=== PATIENT | female | born 1985 | race Caucasian/White ===

== ENCOUNTER 2016-11-20 15:34 | Emergency (ER) | payer SELFPAY ==
[2016-11-20 16:19] LABS: Basophils % (Auto) 0.2 % (0.0-1.8); Hematocrit 39.4 % (30.3-42.9); Hemoglobin 13.6 gm/dl (10.1-14.3); Mean Corpuscular HGB Conc 34 % (30-34); Mean Corpuscular Hemoglobin 33 pg (28-32); Mean Corpuscular Volume 96 fl (79-97); Platelet Count 186 K/mm3 (140-440); Red Blood Count 4.12 M/mm3 (3.65-5.03); Red Cell Distribution Width 14.5 % (13.2-15.2); White Blood Count 12.7 K/mm3 (4.5-11.0)
[2016-11-20 16:38] LABS: Alanine Aminotransferase 125 units/L (7-56); Albumin 3.9 g/dL (3.9-5); Albumin/Globulin Ratio 1.1 %; Alkaline Phosphatase 100 units/L (35-129); Anion Gap 17 mmol/L; Blood Urea Nitrogen 10 mg/dL (7-17); Calcium 8.2 mg/dL (8.4-10.2); Carbon Dioxide 19 mmol/L (22-30); Chloride 99.2 mmol/L (98-107); Glucose 113 mg/dL (65-100); Lipase 26 units/L (13-60); Potassium 3.2 mmol/L (3.6-5.0); Sodium 132 mmol/L (137-145); Total Protein 7.5 g/dL (6.3-8.2)
[2016-11-20 17:46] LABS: Bacteria,Urine 1+ /HPF (Negative); Bilirubin,Urine NEG (Negative); Blood,Urine SM (Negative); Ketones,Urine 20 mg/dL (Negative); Leukocyte Esterase,Urine LG (Negative); Mucus,Urine 1+ /HPF; Nitrite,Urine NEG (Negative); Renal Epithelial Cells,Urine 1 /LPF
[2016-11-20] MEDS ORDERED: NACL 0.9% 1000 ML 1,000 ML IV ONE (20:24)
[2016-11-20] MEDS ORDERED: ROCEPHIN/NS 2 GM/100 ML 2 GM/100 ML BAG IV ONE (20:24)
[2016-11-20] MEDS ORDERED: ZOFRAN IV ONE (20:24)
--- NOTE | 2016-11-20 20:25 | Emergency Department Report ---
<FRANNIE JHONSON - Last Filed: 11/21/16 00:26> ED Abdominal Pain HPI - General Chief Complaint: Abdominal Pain Stated Complaint: FEVER Time Seen by Provider: 11/20/16 20:23 Source: patient Mode of arrival: Wheelchair Limitations: No Limitations - History of Present Illness Initial Comments: 31-year-old female past medical history recurrent UTIs, kidney stones presents with complaint of 2 days of suprapubic pain and flank pain generalized weakness. States that she has been having fevers and chills was with associated nausea. Patient accompanied by her family members. States that she has had similar symptoms and episodes in the past. Patient states that she feels very nauseous and weak. Awake alert and oriented 3. This patient speaks Estonian and Telugu which I am able to speak fluently. MD Complaint: abdominal pain Onset/Timin -: days(s) Location: suprapubic, L flank, R flank Radiation: suprapubic, L flank, R flank Severity: moderate Severity scale (0 -10): 6 Quality: aching, sharp - Related Data Previous Rx's Medication Instructions Recorded Last Taken Type Levofloxacin [Levaquin] 750 mg PO QDAY #5 tablet 11/21/16 Unknown Rx Naproxen [Naprosyn TAB] 375 mg PO BID PRN #20 tablet 11/21/16 Unknown Rx Ondansetron [Zofran Odt] 4 mg PO Q8H PRN #15 tab.rapdis 11/21/16 Unknown Rx Phenazopyridine [Pyridium] 100 mg PO TID #6 tab 11/21/16 Unknown Rx Allergies Allergy/AdvReac Type Severity Reaction Status Date / Time No Known Allergies Allergy Unverified 11/20/16 15:56 ED Review of Systems ROS: Stated complaint: FEVER Other details as noted in HPI Constitutional: denies: chills, fever Eyes: denies: eye pain, eye discharge, vision change ENT: denies: ear pain, throat pain Respiratory: denies: cough, shortness of breath, wheezing Cardiovascular: denies: chest pain, palpitations Endocrine: no symptoms reported Gastrointestinal: denies: abdominal pain, nausea, diarrhea Genitourinary: denies: urgency, dysuria, discharge Musculoskeletal: denies: back pain, joint swelling, arthralgia Skin: denies: rash, lesions Neurological: denies: headache, weakness, paresthesias Psychiatric: denies: anxiety, depression Hematological/Lymphatic: denies: easy bleeding, easy bruising ED Past Medical Hx - Past Medical History Previous Medical History?: No - Surgical History Hx Cholecystectomy: Yes - Social History Smoking Status: Never Smoker Substance Use Type: None - Medications Home Medications: Home Medications Medication Instructions Recorded Confirmed Last Taken Type Levofloxacin [Levaquin] 750 mg PO QDAY #5 tablet 11/21/16 Unknown Rx Naproxen [Naprosyn TAB] 375 mg PO BID PRN #20 tablet 11/21/16 Unknown Rx Ondansetron [Zofran Odt] 4 mg PO Q8H PRN #15 tab.rapdis 11/21/16 Unknown Rx Phenazopyridine [Pyridium] 100 mg PO TID #6 tab 11/21/16 Unknown Rx ED Physical Exam - General Limitations: No Limitations General appearance: alert, anxious - Head Head exam: Present: atraumatic, normocephalic - Eye Eye exam: Present: normal appearance, PERRL, EOMI - ENT ENT exam: Present: mucous membranes moist - Neck Neck exam: Present: normal inspection - Respiratory Respiratory exam: Present: normal lung sounds bilaterally. Absent: respiratory distress - Cardiovascular Cardiovascular Exam: Present: regular rate, normal rhythm. Absent: systolic murmur, diastolic murmur, rubs, gallop - GI/Abdominal GI/Abdominal exam: Present: soft, tenderness (suprapubic tenderness on exam), normal bowel sounds, other (patient has mild right and left-sided flank pain on percussion) - Extremities Exam Extremities exam: Present: normal inspection - Back Exam Back exam: Present: normal inspection - Neurological Exam Neurological exam: Present: alert, oriented X3, CN II-XII intact, normal gait - Psychiatric Psychiatric exam: Present: normal affect, normal mood - Skin Skin exam: Present: warm, dry, intact, normal color. Absent: rash ED Course Vital Signs 11/20/16 11/20/16 11/20/16 15:49 21:39 23:00 Temperature 101.1 F H Pulse Rate 98 H 107 H 103 H Respiratory 19 22 14 Rate Blood Pressure 110/76 Blood Pressure 105/71 [Left] O2 Sat by Pulse 99 98 98 Oximetry 11/20/16 23:01 Temperature 99.7 F H Pulse Rate 100 H Respiratory 22 Rate Blood Pressure Blood Pressure 101/61 [Left] O2 Sat by Pulse 98 Oximetry ED Medical Decision Making - Lab Data Result diagrams: 11/20/16 15:59 11/20/16 15:59 - Medical Decision Making A/P: Clinical pyelonephritis 1-case discussed with 2-patient given empiric course of Levaquin as she states she has a history of recurrent UTIs 3-patient states she lives in [place] and has a urologist appointment follow-up the which is approximately 1 week from now 4-patient now tolerating by mouth. Signed out to my colleague for follow-up vitals Critical care attestation.: If time is entered above; I have spent that time in minutes in the direct care of this critically ill patient, excluding procedure time. ED Disposition Clinical Impression: Pyelonephritis Disposition: TO HOME OR SELFCARE Condition: Good Instructions: Urinary Tract Infection in Women (ED), Acute Pyelonephritis (ED) , Abdominal Pain (ED), Flank Pain (ED) Prescriptions: Levofloxacin [Levaquin] 750 mg PO QDAY #5 tablet Naproxen [Naprosyn TAB] 375 mg PO BID PRN #20 tablet PRN Reason: Pain Ondansetron [Zofran Odt] 4 mg PO Q8H PRN #15 tab.rapdis PRN Reason: Nausea Phenazopyridine [Pyridium] 100 mg PO TID #6 tab Referrals: [facility] [Provider Group] - 3-5 Days [facility] [Provider Group] - 3-5 Days Forms: Accompanied Note, Work/School Release Form(ED) Print Language: [place] CITIZEN <BASSEM BRUMFIELD - Last Filed: 11/21/16 01:39> ED Medical Decision Making - Lab Data Result diagrams: 11/20/16 15:59 11/20/16 15:59 ED Disposition Is pt being admited?: No Does the pt Need Aspirin: No
[2016-11-20] MEDS ORDERED: MORPHINE IV ONE (21:29)
[2016-11-20] MEDS ORDERED: LACTATED RINGERS 1,000 ML IV ONE (21:30)
[2016-11-20] MEDS ORDERED: TYLENOL PO ONE (21:35)
[2016-11-20] MEDS ORDERED: MORPHINE ONE (21:40)
--- NOTE | 2016-11-20 23:25 | Cat Scan Report ---
FINAL REPORT EXAM: CT ABDOMEN PELVIS W CON HISTORY: pyelonephritis? flank pain w. uti TECHNIQUE: Spiral CT scanning of the abdomen and pelvis after the uneventful administration of IV contrast. Multiplanar reformations. 100 mL Omnipaque IV. PRIORS: None. FINDINGS: Abdomen: Visualized lung bases show probable mild atelectatic change bilaterally. Gallbladder surgically absent. Liver without significant abnormality. Spleen without significant abnormality. Pancreas without significant abnormality. Cortical defects, probable scarring and atrophic change in the right renal upper pole. Heterogenous enhancement pattern and striated nephrogram in the right kidney, most pronounced in the lower pole, with some perinephric fat stranding. Large calcifications x2 in right renal upper pole, largest measuring approximately 1.4 cm. 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 Left kidney without significant abnormality. Adrenal glands without significant abnormality. Pelvis: Bowel grossly unremarkable. Appendix within normal limits. No significant free peritoneal fluid or discrete abscess. Abdominal aorta non-aneurysmal. Ovoid, cystic focus in the left ovary measures approximately 3 cm. IMPRESSION: 1. Findings which probably represent nonspecific postinflammatory change in the right kidney, including pyelonephritis or UTI. Correlate clinically. 2. Nonobstructing right renal calcifications and duplicated right renal collecting system. 3. Findings which may represent functional cystic change in the left ovary. Correlation with pelvic ultrasound may help in further evaluation, as clinically indicated.
[2016-11-21] MEDS ORDERED: NACL 0.9% 1000 ML 1,000 ML IV ONE (00:08)
[2016-11-21] MEDS ORDERED: TORADOL IV ONE (00:08)
[2016-11-21] MEDS ORDERED: LEVAQUIN PO ONE (00:08)
[2016-11-21] MEDS ORDERED: ZOFRAN ODT PO ONE (00:13)
[2016-11-21 03:18] VITALS: BP 102/60
== END 2016-11-21 03:18 | disposition home or self-care (01) ==
LOC: ED 15:34
DX: N12 Tubulo-interstitial nephritis, not specified as acute or chronic (principal)
CPT/HCPCS: 36415; 74177; 80053; 81001; 82140; 82550; 83690; 84703; 85025; 87040; 87076; 87086; 87186; 96361; 96365; 96375; 99284; J0696; J1885; J2270; J2405; J7030; J7120; Q9967; Q0162

== ENCOUNTER 2018-07-06 17:24 | Inpatient (IN) | payer OTHER ==
[2018-07-06] MEDS ORDERED: NARCAN 0.4 MG/1 ML IV PRN (19:46)
[2018-07-06] MEDS ORDERED: XYLOCAINE 2% INFILTRATI ONE (19:46)
[2018-07-06] MEDS ORDERED: AMPICILLIN/NS 2 GM/100 ML 2 GM/100 ML BAG IV ONE (19:46)
[2018-07-06] MEDS ORDERED: BRETHINE SUB-Q PRN (19:46)
[2018-07-06] MEDS ORDERED: ZOFRAN IV PRN (19:46)
[2018-07-06] MEDS ORDERED: MINERAL OIL PO PRN (19:46)
[2018-07-06] MEDS ORDERED: STADOL IV PRN (19:46)
[2018-07-06] MEDS ORDERED: BRETHINE IVP PRN (19:46)
[2018-07-06] MEDS ORDERED: LACTATED RINGERS 1,000 ML IV SCH (20:00)
[2018-07-06] MEDS ORDERED: PITOCin/NS 30 UNIT/500ML 30 UNITS/500 ML BAG IV SCH (20:00)
--- NOTE | 2018-07-06 20:06 | History and Physical Report ---
History of Present Illness Date of examination: 07/06/18 Date of admission: 07/06/18 17:24 Chief complaint: My water broke History of present illness: Early entry to care at [facility] , Uncomplicated course. Past History Past Medical History: no pertinent history Past Surgical History: cholecystectomy, other (Breast Implants) Family/Genetic History: none Social history: no significant social history, single - Obstetrical History Expected Date of Delivery: 07/12/18 Actual Gestation: 39 Week(s) 1 Day(s) : 5 Para: 4 Hx # Term Pregnancies: 4 Number of Living Children: 4 #1 Infant Gender: Female year: 2,001 Birthweight: 3.175 kg Method of Delivery: Vaginal Gestational age at delivery: 40 Complications: none #2 Infant Gender: Female year: 2,005 Birthweight: 3.175 kg Method of Delivery: Vaginal Gestational age at delivery: 40 #3 Infant Gender: Female year: 2,007 Birthweight: 2.722 kg Method of Delivery: Vaginal #4 Gender: Female year: 2,010 Birthweight: 2.722 kg Method of Delivery: Vaginal Gestational age at delivery: 40 Medications and Allergies Allergies Allergy/AdvReac Type Severity Reaction Status Date / Time No Known Allergies Allergy Unverified 11/20/16 15:56 Home Medications Medication Instructions Recorded Confirmed Last Taken Type Naproxen [Naprosyn TAB] 375 mg PO BID PRN #20 tablet 11/21/16 Unknown Rx Ondansetron [Zofran Odt] 4 mg PO Q8H PRN #15 tab.rapdis 11/21/16 Unknown Rx Phenazopyridine [Pyridium] 100 mg PO TID #6 tab 11/21/16 Unknown Rx levoFLOXacin [Levaquin] 750 mg PO QDAY #5 tablet 11/21/16 Unknown Rx Active Meds: Active Medications Butorphanol Tartrate (Stadol) 2 mg IV Q2H PRN PRN Reason: Pain , Severe (7-10) Ephedrine Sulfate (Ephedrine Sulfate) 10 mg IV Q2M PRN PRN Reason: Hypotension Ampicillin Sodium (Polycillin/Ns 2 Gm/100 Ml) 2 gm in 100 mls @ 100 mls/hr IV ONCE ONE; Protocol Stop: 07/06/18 20:45 Ampicillin Sodium (Ampicillin/Ns 1 Gm/50 Ml) 1 gm in 50 mls @ 100 mls/hr IV Q4HR JULIUS; Protocol Lactated Ringer's (Lactated Ringers) 1,000 mls @ 125 mls/hr IV DIRECT JULIUS Oxytocin/Sodium Chloride (Pitocin/Ns 20 Unit/1000ml Drip) 20 units in 1,000 mls @ 125 mls/hr IV DIRECT JULIUS Oxytocin/Sodium Chloride (Pitocin/Ns 30 Unit/500ml) 30 units in 500 mls @ 2 mls/hr IV TITR JULIUS; Protocol Mineral Oil (Mineral Oil) 30 ml PO QHS PRN PRN Reason: Constipation Naloxone HCl (Narcan 0.4 Mg/1 Ml) 0.1 mg IV Q2MIN PRN PRN Reason: Res Rate </= 8 or 02 SAT < 92% Ondansetron HCl (Zofran) 4 mg IV Q8H PRN PRN Reason: Nausea And Vomiting Terbutaline Sulfate (Brethine) 0.25 mg SUB-Q ONCE PRN PRN Reason: Hyperstimulation/Hypertonicity Terbutaline Sulfate (Brethine) 0.25 mg IVP ONCE PRN PRN Reason: Hyperstimulation/Hypertonicity Review of Systems All systems: negative - Vital Signs Vital signs: Vital Signs Pulse BP 71 128/73 07/06/18 17:36 07/06/18 17:36 Temp Pulse Resp BP Pulse Ox 98.7 F 71 18 128/73 07/06/18 18:20 07/06/18 17:36 07/06/18 18:20 07/06/18 17:36 - Physical Exam Breasts: Positive: normal Cardiovascular: Regular rate Lungs: Positive: Clear to auscultation Abdomen: Positive: normal appearance, soft, normal bowel sounds Genitourinary (Female): Positive: normal external genitalia, normal perenium Vagina: Positive: normal moisture Uterus: Positive: enlarged Anus/Rectum: Positive: normal perianal skin Extremities: Positive: normal - Obstetrical FHR: category 1 Uterine Contraction Monitor Mode: External Cervical Dilatation: 1 (Copious amount of clear fluid leaking) Cervical Effacement Percentage: 40 station: -4 Uterine Contraction Pattern: Irregular Uterine Tone Measurement Phase: Resting Uterine Contraction Intensity: Mild Results All other labs normal. Assessment and Plan A: IUP @ 39 1/7 Weeks Category I Tracing PROM GBS Positive P: Admit to L&D per Routine Orders Pitocin Induction GBS Prophylaxis
[2018-07-06 21:39] LABS: Hematocrit 38.1 % (30.3-42.9); Hemoglobin 13.4 gm/dl (10.1-14.3); Mean Corpuscular HGB Conc 35 % (30-34); Mean Corpuscular Volume 99 fl (79-97); Platelet Count 253 K/mm3 (140-440); Red Blood Count 3.85 M/mm3 (3.65-5.03); Red Cell Distribution Width 14.1 % (13.2-15.2)
[2018-07-06] MEDS ORDERED: AMPICILLIN/NS 1 GM/50 ML 1 GM/50 ML BAG IV SCH (23:48)
[2018-07-07] MEDS: PITOCin/NS 20 UNIT/1000ML DRIP 20 UNITS/1,000 ML BAG IV SCH ×2 (01:52→03:44)
--- NOTE | 2018-07-07 02:09 | Procedure Note ---
OB Delivery Note - Delivery Date of Delivery: 07/07/18 (0145) Surgeon: CHIQIUS ERICKSON Estimated blood loss: 200cc - Vaginal Delivery presentation: vertex Delivery position: OA Intrapartum events: none Delivery induction: oxytocin Delivery augmentation: pitocin Delivery monitor: external FHT, external uterine Route of delivery: Delivery placenta: spontaneous Delivery cord: 3 umbilical vessels Episiotomy: none Delivery laceration: none Anesthesia: none Delivery comments: of a live 7'8 male infant over a intact perineum under IV pain control with Apgars of 8 and 9 at 0145 on 07/07/2018. directly to maternal abd/chest, skin to skin. Spontaneous delivery of placenta complete and intact with [place] side presenting at 0156. Fundus is firm and midline located 4 below the U. Lochia is scant. Delayed cord clamping and cutting; cord cut by the Father of the Baby. Cord blood collected; Placenta discarded. GBS prophylaxis X 2. - A at 1 minute: 8 at 5 minutes: 9 Infant Gender: Male (7'8)
[2018-07-07] MEDS ORDERED: IBUPROFEN PO ONE (03:38)
[2018-07-07] MEDS ORDERED: NORCO 5/325 PO PRN (04:14)
[2018-07-07] MEDS ORDERED: BENADRYL PO PRN (04:15)
[2018-07-07] MEDS: IBUPROFEN PO PRN (04:45)
[2018-07-07 14:41] LABS: Hematocrit 31.9 % (30.3-42.9); Hemoglobin 11.1 gm/dl (10.1-14.3)
--- NOTE | 2018-07-08 09:43 | Progress Note ---
Assessment and Plan A: PPD#1 s/p Breast/Bottlefeeding VSS P: Routine PP care Anticipate discharge home 24-48 hrs Subjective - Subjective Date of service: 07/08/18 Principal diagnosis: PPD#1 s/p 07/07/18 @01:45 Patient reports: appetite normal, voiding normally, pain well controlled, flatus, ambulating normally [place]: doing well, other (breast/bottle; under toña lights) Objective - Vital Signs Latest vital signs: Vital Signs Temp Pulse Resp BP BP Pulse Ox 07/08/18 00:45 98.5 F 72 16 110/65 07/07/18 16:15 98.6 F 83 24 112/72 96 07/07/18 13:35 97.8 F 74 20 109/71 98 Intake and Output 07/07/18 07/08/18 07/08/18 23:59 07:59 15:59 Intake Total 480 Balance 480 Intake: Intake, Free Water 480 Other: # Voids Void 2 - Exam Breasts: Present: normal, Cardiovascular: Present: Regular rate, Normal S1, Normal S2, No murmurs Lungs: Present: Clear to auscultation, Normal air movement Abdomen: Present: normal appearance, soft, tenderness, normal bowel sounds. Absent: distention Vulva: both: normal Uterus: Present: firm, fundal height below umbilicus (-1) Extremities: Present: normal Deep Tendon Reflex Grade: Normal +2
--- NOTE | 2018-07-08 09:45 | Discharge Summary ---
Providers - Providers Date of Admission: 07/06/18 17:24 Date of discharge: 07/09/18 Attending physician: JULIAN GARCIA MD Primary care physician: JULIAN GARCIA MD Hospitalization Reason for admission: active labor, IUP at term Delivery: Procedure details: see delivery note Episiotomy: none Laceration: none Other procedures: none complications: none Discharge diagnosis: IUP at term delivered [place] baby: male Condition at discharge: Good Disposition: DC-01 TO HOME OR SELFCARE Plan - Provider Discharge Summary Activity: routine, no sex for 6 weeks, no heavy lifting 4 weeks, no strenuous exercise Diet: routine Instructions: routine Additional instructions: [] Smoking cessation referral if applicable(refer to patient education folder for contact #) [] Refer to [facility] Booklet Call your doctor immediately for: * Fever > 100.5 * Heavy vaginal bleeding ( >1 pad per hour) * Severe persistent headache * Shortness of breath * Reddened, hot, painful area to leg or breast * Drainage or odor from incision. * Keep incision clean and dry at all times and follow doctor's instructions regarding bathing/showering - Follow up plan Follow up: JULIAN GARCIA MD [Primary Care Provider] - 6 Weeks
[2018-07-09] MEDS: IBUPROFEN PO PRN ×2 (12:12→18:19)
[2018-07-09 16:03] VITALS: BP 119/78
== END 2018-07-09 18:17 | disposition home or self-care (01) | DRG 807 ==
LOC: LD 17:24 → OB 07-07 04:08
PROVIDERS: ADMIT Obstetrics & Gynecology; ATTEND Obstetrics & Gynecology
PROC: 10E0XZZ Delivery of Products of Conception, External Approach (ICD-10-PCS; principal; 2018-07-07)
PROC: 3E033VJ Introduction of Other Hormone into Peripheral Vein, Percutaneous Approach (ICD-10-PCS; 2018-07-07)
DX: O42.92 Full-term premature rupture of membranes, unspecified as to length of time between rupture and onset of labor (principal); Z37.0 Single live birth; O99.824 Streptococcus B carrier state complicating childbirth; Z3A.39 39 weeks gestation of pregnancy; Z90.49 Acquired absence of other specified parts of digestive tract; Z79.899 Other long term (current) drug therapy
CPT/HCPCS: 36415; 85014; 85018; 85027; 86592; 86850; 86900; 86901; G0378; J0290; J0595; J2590; J7120